=== PATIENT | male | born 1955 | race Caucasian/White ===

== ENCOUNTER 2021-12-04 20:17 | Inpatient (IN) | payer MEDICARE ==
[2021-12-04] MEDS ORDERED: Morphine 4 MG/ML VIAL ONE ×2 (20:39→22:10)
[2021-12-04] MEDS ORDERED: Ondansetron PF 4 MG/2 ML Vial ONE (20:39)
[2021-12-04 21:01] LABS: #Basophils 0.1 thou/uL (0.0-0.2); #Eosinphils 0.1 thou/uL (0.0-0.7); #Lymphocytes 0.7 thou/uL (1.20-3.40); #Monocytes 0.4 thou/uL (0.11-0.59); %Basophils 0.5 % (0.0-1.0); %Eosinophils 1.1 % (0.0-10.0); %Lymphocytes 7.5 % (21.0-51.0); %Monocytes 4.7 % (0.0-10.0); %Neutrophils 86.2 % (42.0-75.0); Hemoglobin 14.4 g/dL (14.0-18.0); Mean Corpuscular HGB CONC 32.4 g/dL (32.0-36.0); Mean Corpuscular Hemoglobin 31.7 pg (27.0-31.0); Mean Corpuscular Volume 97.6 fL (78.0-98.0); Mean Platelet Volume 8.1 fL (7.4-10.4); Platelet Count 222 thou/uL (130-400); RBC Distribution Width 13.7 % (11.5-14.5); Red Blood Cell (RBC) Count 4.54 mill/uL (4.70-6.10); White Blood Cell (WBC) Count 9.3 thou/uL (4.8-10.8)
[2021-12-04 21:20] LABS: ALT (SGPT) Less than 7 U/L (8-55); AST (SGOT) 11 U/L (5-34); Albumin 3.8 g/dL (3.4-4.8); Alkaline Phosphatase 87 U/L (40-110); Anion Gap 15 mmol/L (10-20); BUN (Urea Nitrogen) 20 mg/dL (8.4-25.7); Bilirubin, Total 0.6 mg/dL (0.2-1.2); Calc. Creatinine Clearance 0 mL/min (70-130); Calcium 8.9 mg/dL (7.8-10.44); Carbon Dioxide 24 mmol/L (23-31); Chloride 107 mmol/L (98-107); Globulin 3.6 g/dL (2.4-3.5); Glucose 90 mg/dL (80-115); Potassium 3.5 mmol/L (3.5-5.1); Protein, Total 7.4 g/dL (5.8-8.1); Sodium 142 mmol/L (136-145)
[2021-12-04] MEDS ORDERED: Promethazine HCl 25 MG/ML VIAL IM PRN (22:55)
[2021-12-04] MEDS ORDERED: Ondansetron PF 4 MG/2 ML Vial IVP PRN (22:55)
[2021-12-04] MEDS ORDERED: hydrALAZINE 20 MG/ML VIAL SLOW IVP PRN (22:55)
[2021-12-04] MEDS ORDERED: Dextrose 5% in Water 1,000 ML IV PRN (22:55)
[2021-12-04] MEDS ORDERED: Morphine 2 MG/ML VIAL SLOW IVP PRN (22:55)
[2021-12-04] MEDS ORDERED: Dextrose 50% Abboject 50 ML SYRINGE SLOW IVP PRN (22:55)
[2021-12-04] MEDS ORDERED: HumaLOG 300 UNITS/3 ML VIAL SC PRN (22:55)
[2021-12-04] MEDS ORDERED: Sodium Chloride 0.9% 1,000 ML IV SCH ×2 (23:00→23:20)
[2021-12-04] MEDS ORDERED: hydrALAZINE 20 MG/ML VIAL ONE (23:18)
[2021-12-04] MEDS ORDERED: Amlodipine 5 MG TAB PO SCH (23:45)
[2021-12-04 23:56] LABS: INR-International Normal Ratio 2.4; Prothrombin Time 26.6 sec (12.0-14.7)
[2021-12-04 23:57] LABS: PTT 61.6 sec (22.9-36.1)
[2021-12-04] MEDS ORDERED: Acetaminophen 500 MG TAB PO SCH (23:59)
[2021-12-05] MEDS ORDERED: Potassium Phosphate 30 MMOL in Sodium Chloride 0.9% 250 ML 250 ML IVPB SCH ×2 (00:15→03:30)
[2021-12-05 01:16] VITALS: BMI 33.0
[2021-12-05] MEDS: Acetaminophen/Codeine 30-300mg Tablet PO SCH ×6 (01:23→20:50)
[2021-12-05 05:31] LABS: #Basophils 0.1 thou/uL (0.0-0.2); #Eosinphils 0.1 thou/uL (0.0-0.7); #Neutrophils 9.8 thou/uL (1.40-6.50); %Basophils 0.6 % (0.0-1.0); %Eosinophils 0.5 % (0.0-10.0); %Lymphocytes 8.5 % (21.0-51.0); %Monocytes 8.4 % (0.0-10.0); Hemoglobin 14.1 g/dL (14.0-18.0); Mean Corpuscular HGB CONC 32.5 g/dL (32.0-36.0); Mean Corpuscular Hemoglobin 31.6 pg (27.0-31.0); Mean Corpuscular Volume 97.3 fL (78.0-98.0); Mean Platelet Volume 7.8 fL (7.4-10.4); Platelet Count 213 thou/uL (130-400); RBC Distribution Width 13.7 % (11.5-14.5); Red Blood Cell (RBC) Count 4.47 mill/uL (4.70-6.10)
[2021-12-05 06:01] LABS: Anion Gap 13 mmol/L (10-20); BUN (Urea Nitrogen) 20 mg/dL (8.4-25.7); Calc. Creatinine Clearance 60 mL/min (70-130); Calcium 8.7 mg/dL (7.8-10.44); Carbon Dioxide 26 mmol/L (23-31); Chloride 107 mmol/L (98-107); Glucose 127 mg/dL (80-115); Magnesium 2.3 mg/dL (1.6-2.6); Phosphorus 3.1 mg/dL (2.3-4.7); Potassium 4.3 mmol/L (3.5-5.1); Sodium 142 mmol/L (136-145)
[2021-12-05] MEDS ORDERED: hydrALAZINE 20 MG/ML VIAL SLOW IVP PRN (07:39)
[2021-12-05] MEDS: Furosemide 80 MG TAB PO SCH (09:34)
[2021-12-05] MEDS: Pregabalin 50 MG CAP PO SCH ×3 (09:34→20:50)
[2021-12-05] MEDS: Famotidine 20 MG TAB PO SCH (09:34)
[2021-12-05] MEDS: FLUoxetine HCl 20 MG CAP PO SCH (09:35)
[2021-12-05] MEDS: cloNIDine 0.1 MG TAB PO SCH (09:36)
[2021-12-05] MEDS: Amlodipine 5 MG TAB PO SCH (09:36)
[2021-12-05 12:03] LABS: SARS-CoV-2 PCR by NAA Not Detected (NotDetected)
[2021-12-05] MEDS: Bumetanide 1 MG TAB PO SCH (12:37)
[2021-12-05] MEDS: Zolpidem Tartrate 5 MG TAB PO PRN (20:49)
[2021-12-05] MEDS: Atorvastatin Calcium 40 MG TAB PO SCH (20:49)
[2021-12-06] MEDS: Acetaminophen/Codeine 30-300mg Tablet PO SCH ×6 (01:34→21:22)
[2021-12-06] MEDS: Losartan 25 MG TAB PO SCH (08:41)
[2021-12-06] MEDS: Pregabalin 50 MG CAP PO SCH ×3 (08:41→21:22)
[2021-12-06] MEDS: Amlodipine 5 MG TAB PO SCH (08:43)
[2021-12-06] MEDS: FLUoxetine HCl 20 MG CAP PO SCH (08:43)
[2021-12-06] MEDS: cloNIDine 0.1 MG TAB PO SCH (08:43)
[2021-12-06] MEDS: Furosemide 80 MG TAB PO SCH (08:44)
[2021-12-06] MEDS: Famotidine 20 MG TAB PO SCH (08:44)
[2021-12-06] MEDS: Acetaminophen/Codeine 30-300mg Tablet PO PRN ×2 (13:02→17:11)
[2021-12-06] MEDS ORDERED: traMADol HCl 50 MG TAB PO PRN (13:06)
[2021-12-06] MEDS: Bumetanide 1 MG TAB PO SCH (13:13)
[2021-12-06] MEDS: Rivaroxaban 15 MG TAB PO SCH (17:10)
[2021-12-06] MEDS: Zolpidem Tartrate 5 MG TAB PO PRN (21:22)
[2021-12-06] MEDS: Atorvastatin Calcium 40 MG TAB PO SCH (21:22)
[2021-12-07] MEDS: Acetaminophen/Codeine 30-300mg Tablet PO SCH ×7 (01:07→21:17)
[2021-12-07] MEDS: FLUoxetine HCl 20 MG CAP PO SCH (09:27)
[2021-12-07] MEDS: Amlodipine 5 MG TAB PO SCH (09:27)
[2021-12-07] MEDS: Famotidine 20 MG TAB PO SCH (09:27)
[2021-12-07] MEDS: cloNIDine 0.1 MG TAB PO SCH (09:28)
[2021-12-07] MEDS: Losartan 25 MG TAB PO SCH (09:28)
[2021-12-07] MEDS: Furosemide 80 MG TAB PO SCH (09:29)
[2021-12-07] MEDS: Pregabalin 50 MG CAP PO SCH ×3 (09:29→21:17)
[2021-12-07] MEDS: Bumetanide 1 MG TAB PO SCH (12:10)
[2021-12-07] MEDS: Acetaminophen/Codeine 30-300mg Tablet PO PRN ×2 (12:13→20:21)
[2021-12-07] MEDS: Rivaroxaban 15 MG TAB PO SCH (18:30)
[2021-12-07] MEDS: Zolpidem Tartrate 5 MG TAB PO PRN (21:17)
[2021-12-07] MEDS: Atorvastatin Calcium 40 MG TAB PO SCH (21:17)
[2021-12-08] MEDS: Acetaminophen/Codeine 30-300mg Tablet PO SCH ×6 (00:34→20:59)
[2021-12-08] MEDS: Amlodipine 5 MG TAB PO SCH (09:50)
[2021-12-08] MEDS: FLUoxetine HCl 20 MG CAP PO SCH (09:51)
[2021-12-08] MEDS: Furosemide 80 MG TAB PO SCH (09:51)
[2021-12-08] MEDS: cloNIDine 0.1 MG TAB PO SCH (09:51)
[2021-12-08] MEDS: Famotidine 20 MG TAB PO SCH (09:51)
[2021-12-08] MEDS: Losartan 25 MG TAB PO SCH (09:52)
[2021-12-08] MEDS: Pregabalin 50 MG CAP PO SCH ×3 (09:52→20:59)
[2021-12-08] MEDS: Acetaminophen/Codeine 30-300mg Tablet PO PRN ×2 (09:59→21:05)
[2021-12-08] MEDS: Bumetanide 1 MG TAB PO SCH (14:23)
[2021-12-08] MEDS: Rivaroxaban 15 MG TAB PO SCH (17:41)
[2021-12-08] MEDS: Atorvastatin Calcium 40 MG TAB PO SCH (20:59)
[2021-12-08] MEDS: Zolpidem Tartrate 5 MG TAB PO PRN (22:08)
[2021-12-09] MEDS: Acetaminophen/Codeine 30-300mg Tablet PO SCH ×6 (01:11→20:37)
[2021-12-09 06:20] LABS: Anion Gap 13 mmol/L (10-20); BUN (Urea Nitrogen) 37 mg/dL (8.4-25.7); Calc. Creatinine Clearance 59 mL/min (70-130); Carbon Dioxide 26 mmol/L (23-31); Chloride 102 mmol/L (98-107); Glucose 107 mg/dL (80-115); Magnesium 2.1 mg/dL (1.6-2.6); Phosphorus 3.3 mg/dL (2.3-4.7); Potassium 3.9 mmol/L (3.5-5.1); Sodium 137 mmol/L (136-145)
[2021-12-09 07:35] LABS: Mean Corpuscular HGB CONC 31.9 g/dL (32.0-36.0); Mean Corpuscular Hemoglobin 30.7 pg (27.0-31.0); Mean Corpuscular Volume 96.3 fL (78.0-98.0); Mean Platelet Volume 8.4 fL (7.4-10.4); Platelet Count 173 thou/uL (130-400); RBC Distribution Width 13.3 % (11.5-14.5); White Blood Cell (WBC) Count 5.6 thou/uL (4.8-10.8)
[2021-12-09] MEDS: Aspirin 81 mg Enteric Coated Tablet PO SCH (08:53)
[2021-12-09] MEDS: Amlodipine 5 MG TAB PO SCH (08:53)
[2021-12-09] MEDS: Pregabalin 50 MG CAP PO SCH ×3 (08:54→20:36)
[2021-12-09] MEDS: Losartan 25 MG TAB PO SCH (08:54)
[2021-12-09] MEDS: Famotidine 20 MG TAB PO SCH (08:56)
[2021-12-09] MEDS: FLUoxetine HCl 20 MG CAP PO SCH (08:57)
[2021-12-09] MEDS: Furosemide 80 MG TAB PO SCH (08:58)
[2021-12-09] MEDS: cloNIDine 0.1 MG TAB PO SCH (08:58)
[2021-12-09 09:47] LABS: Band 6 % (5-11); Eosinophils 4 % (0-10); Lymphocytes 23 % (21-51); MDiff Complete? YES; Monocytes 12 % (0-10); Neutrophil 54 % (42-75); RBC Morphology Normal
[2021-12-09] MEDS: Bumetanide 1 MG TAB PO SCH (11:46)
[2021-12-09] MEDS: Rivaroxaban 15 MG TAB PO SCH (16:18)
[2021-12-09] MEDS: Acetaminophen/Codeine 30-300mg Tablet PO PRN (16:18)
[2021-12-09] MEDS: Atorvastatin Calcium 40 MG TAB PO SCH (20:34)
[2021-12-09] MEDS: Zolpidem Tartrate 5 MG TAB PO PRN (20:37)
[2021-12-10] MEDS: Acetaminophen/Codeine 30-300mg Tablet PO SCH ×5 (00:57→17:41)
[2021-12-10] MEDS ORDERED: Ondansetron ODT 4 MG TAB PO PRN (09:12)
[2021-12-10] MEDS: Aspirin 81 mg Enteric Coated Tablet PO SCH (10:05)
[2021-12-10] MEDS: FLUoxetine HCl 20 MG CAP PO SCH (10:05)
[2021-12-10] MEDS: Losartan 25 MG TAB PO SCH (10:05)
[2021-12-10] MEDS: Pregabalin 50 MG CAP PO SCH ×2 (10:06→16:07)
[2021-12-10] MEDS: Furosemide 80 MG TAB PO SCH (10:06)
[2021-12-10] MEDS: Amlodipine 5 MG TAB PO SCH (10:07)
[2021-12-10] MEDS: Famotidine 20 MG TAB PO SCH (10:07)
[2021-12-10] MEDS: cloNIDine 0.1 MG TAB PO SCH (10:07)
[2021-12-10] MEDS: Bumetanide 1 MG TAB PO SCH (12:52)
[2021-12-10 15:46] VITALS: BP 122/75; TEMP 98.1
[2021-12-10] MEDS: Acetaminophen/Codeine 30-300mg Tablet PO PRN (17:42)
[2021-12-10] MEDS: Rivaroxaban 15 MG TAB PO SCH (17:42)
== END 2021-12-10 18:15 | DRG 534 ==
LOC: ERS 20:17 → SJJU 22:55
PROVIDERS: ADMIT Student in an Organized Health Care Education/Training Program; ATTEND Surgery
DX: S72.91XA Unspecified fracture of right femur, initial encounter for closed fracture (principal); I13.0 Hypertensive heart and chronic kidney disease with heart failure and stage 1 through stage 4 chronic kidney disease, or unspecified chronic kidney disease; M97.01XA Periprosthetic fracture around internal prosthetic right hip joint, initial encounter; Z20.822 Contact with and (suspected) exposure to COVID-19; I50.9 Heart failure, unspecified; I48.91 Unspecified atrial fibrillation; E78.5 Hyperlipidemia, unspecified; F32.A Depression, unspecified; F17.210 Nicotine dependence, cigarettes, uncomplicated; E11.22 Type 2 diabetes mellitus with diabetic chronic kidney disease; Z96.641 Presence of right artificial hip joint; N18.30 Chronic kidney disease, stage 3 unspecified; I25.10 Atherosclerotic heart disease of native coronary artery without angina pectoris; W18.30XA Fall on same level, unspecified, initial encounter; E11.649 Type 2 diabetes mellitus with hypoglycemia without coma; Z95.5 Presence of coronary angioplasty implant and graft; Z79.4 Long term (current) use of insulin; Z79.01 Long term (current) use of anticoagulants; Z79.899 Other long term (current) drug therapy
CPT/HCPCS: 36415; 36416; 70450; 72125; 72192; 80048; 80053; 83735; 84100; 85025; 85610; 85730; 86850; 86900; 86901; 93005; 96374; 96375; 96376; G0390; J0360; J2270; J2405; J7050; U0003; U0005

== ENCOUNTER 2022-02-20 19:37 | Inpatient (IN) | payer OTHER ==
[2022-02-20 21:25] LABS: #Basophils 0.1 thou/uL (0.0-0.2); #Eosinphils 0.2 thou/uL (0.0-0.7); #Lymphocytes 1.8 thou/uL (1.20-3.40); #Monocytes 0.9 thou/uL (0.11-0.59); #Neutrophils 6.9 thou/uL (1.40-6.50); %Basophils 0.8 % (0.0-1.0); %Eosinophils 2.2 % (0.0-10.0); %Monocytes 8.8 % (0.0-10.0); %Neutrophils 70.3 % (42.0-75.0); Hemoglobin 13.2 g/dL (14.0-18.0); Mean Corpuscular HGB CONC 34.5 g/dL (32.0-36.0); Mean Corpuscular Volume 92.9 fL (78.0-98.0); Mean Platelet Volume 8.4 fL (7.4-10.4); Platelet Count 233 thou/uL (130-400); RBC Distribution Width 13.2 % (11.5-14.5); Red Blood Cell (RBC) Count 4.13 mill/uL (4.70-6.10); White Blood Cell (WBC) Count 9.9 thou/uL (4.8-10.8)
[2022-02-20 21:47] LABS: ALT (SGPT) Less than 7 U/L (8-55); AST (SGOT) 11 U/L (5-34); Albumin 3.4 g/dL (3.4-4.8); Alkaline Phosphatase 72 U/L (40-110); Anion Gap 13 mmol/L (10-20); BUN (Urea Nitrogen) 25 mg/dL (8.4-25.7); Bilirubin, Total 0.6 mg/dL (0.2-1.2); Calc. Creatinine Clearance 0 mL/min (70-130); Calcium 8.7 mg/dL (7.8-10.44); Carbon Dioxide 27 mmol/L (23-31); Chloride 103 mmol/L (98-107); Estimated GFR 32; Globulin 3.2 g/dL (2.4-3.5); Glucose 75 mg/dL (80-115); Protein, Total 6.6 g/dL (5.8-8.1); Sodium 140 mmol/L (136-145)
[2022-02-20 22:19] LABS: Potassium 2.8 mmol/L (3.5-5.1)
[2022-02-20] MEDS ORDERED: Pregabalin 50 MG CAP PO SCH (23:00)
[2022-02-20] MEDS ORDERED: Cefepime 2 GM VIAL ONE (23:10)
[2022-02-20] MEDS ORDERED: Potassium Chloride 40 MEQ in Sodium Chloride 0.9% 250 ML 250 ML IVPB SCH (23:15)
[2022-02-20] MEDS ORDERED: Morphine 4 MG/ML VIAL ONE (23:33)
[2022-02-21] MEDS ORDERED: Vancomycin 1 GM/200 ML BAG ONE (00:21)
[2022-02-21 02:50] VITALS: BMI 32.9
[2022-02-21] MEDS ORDERED: Dextrose 50% Abboject 50 ML SYRINGE SLOW IVP PRN (03:16)
[2022-02-21] MEDS ORDERED: HumaLOG 300 UNITS/3 ML VIAL SC PRN ×2 (03:16)
[2022-02-21] MEDS ORDERED: Acetaminophen 650 MG Suppository PR PRN (03:16)
[2022-02-21] MEDS ORDERED: Ondansetron ODT 4 MG TAB PO PRN (03:16)
[2022-02-21] MEDS ORDERED: Dextrose 5% in Water 1,000 ML IV PRN (03:16)
[2022-02-21] MEDS ORDERED: Ondansetron PF 4 MG/2 ML Vial IVP PRN (03:16)
[2022-02-21] MEDS ORDERED: Electrolyte Replacement Protocol 1 EACH FS SCH (03:30)
[2022-02-21] MEDS ORDERED: Magnesium 2 GM/50 ML(in water) 2 GM in Premix Bag 1 BAG IVPB SCH (03:45)
[2022-02-21] MEDS ORDERED: Magnesium 2 GM/50 ML BAG (IN WATER) ONE (04:12)
[2022-02-21] MEDS: Acetaminophen 325 MG TAB PO PRN (04:13)
[2022-02-21] MEDS ORDERED: Potassium Chloride 40 MEQ in Sodium Chloride 0.9% 250 ML 250 ML IVPB SCH (04:30)
[2022-02-21 04:47] LABS: #Eosinphils 0.3 thou/uL (0.0-0.7); #Lymphocytes 1.6 thou/uL (1.20-3.40); #Monocytes 0.9 thou/uL (0.11-0.59); #Neutrophils 6.1 thou/uL (1.40-6.50); %Basophils 0.2 % (0.0-1.0); %Eosinophils 3.1 % (0.0-10.0); %Lymphocytes 17.5 % (21.0-51.0); %Monocytes 10.5 % (0.0-10.0); %Neutrophils 68.6 % (42.0-75.0); Hemoglobin 11.5 g/dL (14.0-18.0); Mean Corpuscular HGB CONC 32.4 g/dL (32.0-36.0); Mean Corpuscular Hemoglobin 30.6 pg (27.0-31.0); Mean Corpuscular Volume 94.7 fL (78.0-98.0); Mean Platelet Volume 8.3 fL (7.4-10.4); Platelet Count 210 thou/uL (130-400); Red Blood Cell (RBC) Count 3.76 mill/uL (4.70-6.10); White Blood Cell (WBC) Count 8.9 thou/uL (4.8-10.8)
[2022-02-21 05:12] LABS: Anion Gap 10 mmol/L (10-20); BUN (Urea Nitrogen) 22 mg/dL (8.4-25.7); Calc. Creatinine Clearance 56 mL/min (70-130); Calcium 8.1 mg/dL (7.8-10.44); Carbon Dioxide 24 mmol/L (23-31); Chloride 109 mmol/L (98-107); Estimated GFR 38; Glucose 130 mg/dL (80-115); Magnesium 1.9 mg/dL (1.6-2.6); Potassium 3.3 mmol/L (3.5-5.1); Sodium 140 mmol/L (136-145)
[2022-02-21] MEDS ORDERED: Piperacillin/Tazobactam 3.375 GM VIAL ONE ×2 (06:12→09:42)
[2022-02-21] MEDS ORDERED: Piperacillin/Tazobactam 3.375 GM in Sodium Chloride 0.9% 100 ML IVPB SCH (06:15)
[2022-02-21] MEDS: Sodium Chloride 0.9% 1,000 ML IV SCH ×2 (06:15→18:23)
[2022-02-21] MEDS ORDERED: cloNIDine 0.1 MG TAB PO SCH (09:00)
[2022-02-21] MEDS ORDERED: Furosemide 80 MG TAB PO SCH (09:00)
[2022-02-21] MEDS: FLUoxetine HCl 20 MG CAP PO SCH (09:45)
[2022-02-21] MEDS: Piperacillin/Tazobactam 3.375 GM in Sodium Chloride 0.9% 100 ML IVPB SCH ×2 (09:45→19:27)
[2022-02-21] MEDS: Losartan 25 MG TAB PO SCH (09:45)
[2022-02-21] MEDS: Pregabalin 50 MG CAP PO SCH ×3 (09:46→21:24)
[2022-02-21] MEDS: Zolpidem Tartrate 5 MG TAB PO SCH (21:25)
[2022-02-21] MEDS: Atorvastatin Calcium 40 MG TAB PO SCH (21:25)
[2022-02-22] MEDS: Piperacillin/Tazobactam 3.375 GM in Sodium Chloride 0.9% 100 ML IVPB SCH ×3 (02:10→20:05)
[2022-02-22] MEDS: Albuterol Sulfate 2.5 mg/3 ml Neb NEB PRN ×2 (05:37→20:01)
[2022-02-22 07:16] LABS: #Eosinphils 0.3 thou/uL (0.0-0.7); #Lymphocytes 1.2 thou/uL (1.20-3.40); #Monocytes 0.9 thou/uL (0.11-0.59); #Neutrophils 6.9 thou/uL (1.40-6.50); %Basophils 0.5 % (0.0-1.0); %Eosinophils 3.1 % (0.0-10.0); %Lymphocytes 12.7 % (21.0-51.0); %Monocytes 9.4 % (0.0-10.0); %Neutrophils 74.3 % (42.0-75.0); Hemoglobin 12.1 g/dL (14.0-18.0); Mean Corpuscular HGB CONC 32.6 g/dL (32.0-36.0); Mean Corpuscular Hemoglobin 30.5 pg (27.0-31.0); Mean Corpuscular Volume 93.8 fL (78.0-98.0); Platelet Count 229 thou/uL (130-400); RBC Distribution Width 13.2 % (11.5-14.5); Red Blood Cell (RBC) Count 3.96 mill/uL (4.70-6.10); White Blood Cell (WBC) Count 9.3 thou/uL (4.8-10.8)
[2022-02-22 07:35] LABS: Anion Gap 11 mmol/L (10-20); BUN (Urea Nitrogen) 17 mg/dL (8.4-25.7); Calc. Creatinine Clearance 60 mL/min (70-130); Calcium 8.5 mg/dL (7.8-10.44); Carbon Dioxide 26 mmol/L (23-31); Chloride 108 mmol/L (98-107); Estimated GFR 42; Glucose 120 mg/dL (80-115); Potassium 3.5 mmol/L (3.5-5.1); Sodium 141 mmol/L (136-145)
[2022-02-22] MEDS: Sodium Chloride 0.9% 1,000 ML IV SCH (09:19)
[2022-02-22] MEDS: Pregabalin 50 MG CAP PO SCH ×3 (09:20→22:03)
[2022-02-22] MEDS: FLUoxetine HCl 20 MG CAP PO SCH (09:21)
[2022-02-22] MEDS: Losartan 25 MG TAB PO SCH (09:21)
[2022-02-22] MEDS: Enoxaparin Sodium 100 MG/ML SYRINGE SC SCH ×2 (09:22→22:04)
[2022-02-22] MEDS ORDERED: Potassium Chloride 20 MEQ TAB PO SCH (14:30)
[2022-02-22] MEDS ORDERED: traMADol HCl 50 MG TAB PO PRN (14:36)
[2022-02-22] MEDS: Morphine 2 MG/ML VIAL SLOW IVP PRN ×2 (14:44→22:05)
[2022-02-22] MEDS: Zolpidem Tartrate 5 MG TAB PO SCH (22:03)
[2022-02-22] MEDS: Atorvastatin Calcium 40 MG TAB PO SCH (22:04)
[2022-02-22] MEDS: Acetaminophen 325 MG TAB PO PRN (22:26)
[2022-02-23] MEDS: Morphine 2 MG/ML VIAL SLOW IVP PRN ×2 (03:47→11:20)
[2022-02-23] MEDS: Piperacillin/Tazobactam 3.375 GM in Sodium Chloride 0.9% 100 ML IVPB SCH ×2 (03:49→15:15)
[2022-02-23] MEDS: Albuterol Sulfate 2.5 mg/3 ml Neb NEB PRN (04:00)
[2022-02-23] MEDS: Losartan 25 MG TAB PO SCH (11:16)
[2022-02-23] MEDS: Pregabalin 50 MG CAP PO SCH ×2 (11:17→15:27)
[2022-02-23] MEDS: FLUoxetine HCl 20 MG CAP PO SCH (11:18)
[2022-02-23] MEDS: Enoxaparin Sodium 100 MG/ML SYRINGE SC SCH (11:19)
[2022-02-23 12:32] VITALS: BP 129/71; TEMP 97.5
== END 2022-02-23 16:40 | disposition home health service (06) | DRG 300 ==
LOC: ERS 19:37 → 2NO 23:23
PROVIDERS: ADMIT Internal Medicine; ATTEND Internal Medicine
DX: E11.52 Type 2 diabetes mellitus with diabetic peripheral angiopathy with gangrene (principal); I50.32 Chronic diastolic (congestive) heart failure; I13.0 Hypertensive heart and chronic kidney disease with heart failure and stage 1 through stage 4 chronic kidney disease, or unspecified chronic kidney disease; I48.11 Longstanding persistent atrial fibrillation; L03.116 Cellulitis of left lower limb; Z20.822 Contact with and (suspected) exposure to COVID-19; N18.32 Chronic kidney disease, stage 3b; E11.42 Type 2 diabetes mellitus with diabetic polyneuropathy; E78.5 Hyperlipidemia, unspecified; F32.A Depression, unspecified; F12.10 Cannabis abuse, uncomplicated; F15.10 Other stimulant abuse, uncomplicated; F17.210 Nicotine dependence, cigarettes, uncomplicated; G89.29 Other chronic pain; I25.10 Atherosclerotic heart disease of native coronary artery without angina pectoris; I49.3 Ventricular premature depolarization; G47.33 Obstructive sleep apnea (adult) (pediatric); Z96.649 Presence of unspecified artificial hip joint; L97.529 Non-pressure chronic ulcer of other part of left foot with unspecified severity; E11.621 Type 2 diabetes mellitus with foot ulcer; R00.1 Bradycardia, unspecified; R09.02 Hypoxemia; Z95.5 Presence of coronary angioplasty implant and graft; Z79.899 Other long term (current) drug therapy; Z79.02 Long term (current) use of antithrombotics/antiplatelets; Z79.84 Long term (current) use of oral hypoglycemic drugs
CPT/HCPCS: 36415; 36416; 80048; 80053; 83605; 83735; 85025; 85652; 86140; 93005; 93010; 94640; J0692; J1650; J1815; J2270; J2405; J2543; J3370; J3475; J3480; J3490; J7050; J7611; U0003; U0005